=== PATIENT | female | born 1950 | race Caucasian/White ===

== ENCOUNTER 2018-04-09 16:17 | Emergency (ER) | payer MEDICARE ==
[~2018-04-09] VITALS: Ht 167.6 cm; Wt 106.1 kg
[2018-04-09 16:17] VITALS: BP_SYST 156
[2018-04-09 17:57] VITALS: BP_SYST 149
== END 2018-04-09 17:57 | disposition home or self-care (01) ==
LOC: SED 16:17
DX: S61.401A Unspecified open wound of right hand, initial encounter (principal); S00.83XA Contusion of other part of head, initial encounter; S91.201A Unspecified open wound of right great toe with damage to nail, initial encounter; I10 Essential (primary) hypertension; X58.XXXA Exposure to other specified factors, initial encounter; Y93.89 Activity, other specified; Y92.89 Other specified places as the place of occurrence of the external cause; Y99.8 Other external cause status
CPT/HCPCS: 73090; 99284

== ENCOUNTER 2021-04-26 23:28 | Emergency (ER) | payer MEDICARE ==
[~2021-04-26] VITALS: Ht 165.1 cm; Wt 77.1 kg
[2021-04-26 23:57] VITALS: BP_SYST 104
--- NOTE | 2021-04-27 00:10 | NUR ---
PT C/O DIARRHEA X2DAYS AMBULATORY TO [facility] STARTED RT FA 20G WITH .9NS 1000ML BOLUS
[2021-04-27] MEDS ORDERED: NACL 0.9% 1,000 ML IV ONE (00:45)
[2021-04-27 01:00] LABS: BASOPHILS % (AUTO) 0.4 % (0.0-2.0); EOSINOPHILS # (AUTO) 0.2 K/uL (0.0-0.4); EOSINOPHILS % (AUTO) 1.7 % (0.0-4.0); HEMATOCRIT 38.9 % (36-48); HEMOGLOBIN 12.8 g/dL (12.0-16.0); LYMPHOCYTES # (AUTO) 1.5 K/uL (1.0-5.5); LYMPHOCYTES % (AUTO) 13.5 % (20.5-51.5); MEAN CORPUSCULAR HEMOGLOBIN 31 pg (27-31); MEAN CORPUSCULAR HGB CONC 33 % (32-36); MEAN CORPUSCULAR VOLUME 93 fL (79.0-98.0); MONOCYTES # (AUTO) 0.8 K/uL (0.0-1.0); MONOCYTES % (AUTO) 7.2 % (1.7-9.3); NEUTROPHILS # (AUTO) 8.8 K/uL (1.8-7.7); NEUTROPHILS % (AUTO) 77.2 % (40.0-70.0); PLATELET COUNT (AUTO) 284 K/uL (130-430); RED BLOOD CELL COUNT(AUTO) 4.19 MIL/uL (4.2-6.2); RED CELL DISTRIBUTION WIDTH 13.3 % (9.0-15.0); WHITE BLOOD COUNT (AUTO) 11.3 K/uL (4.8-10.8)
[2021-04-27 01:10] LABS: ANION GAP 10 (5-15); CHLORIDE 107 mmol/L (98-107); CREATININE 1.26 mg/dL (0.55-1.30); GLUCOSE 97 mg/dL (70-99); POTASSIUM 3.6 mmol/L (3.5-5.1); SODIUM SERUM 139 mmol/L (136-145); UREA NITROGEN, BLOOD 27 mg/dL (8-21)
[2021-04-27] MEDS ORDERED: IBUPROFEN 600 MG TABLET PO ONE (01:15)
[2021-04-27] MEDS ORDERED: chlordiazePOXIDE HCL 25 MG CAPSULE PO ONE (01:15)
[2021-04-27 01:16] LABS: ALANINE AMINOTRANSFERASE 18 U/L (12-78); ALBUMIN 3.3 g/dL (3.4-4.8); ASPARTATE AMINOTRANSFERASE 18 U/L (10-37); TOTAL BILIRUBIN 0.2 mg/dL (0.0-1.0)
--- NOTE | 2021-04-27 01:48 | NUR ---
DR SEALS TO ESTHER PT AND REVIEW DISCHG CARE PT REFUSED RECTAL EXAM AND DR WHALEY STOOL SPECIMEN
[2021-04-27] MEDS ORDERED: ONDA-8 TL ×2 (01:55→09:55)
[2021-04-27] MEDS ORDERED: PEPTO PO ×2 (01:55→09:55)
--- NOTE | 2021-04-27 02:14 | NUR ---
PT IV DCD SITE WNL PT DISCHGED WITH AFTERCARE INSTRUCTIONS FAMILY TO DRIVE PT HOME STABLE
[2021-04-27 02:18] VITALS: BP_SYST 127
== END 2021-04-27 02:18 | disposition home or self-care (01) ==
LOC: SED 23:28
DX: R19.7 Diarrhea, unspecified (principal); E86.0 Dehydration; I10 Essential (primary) hypertension; Z79.899 Other long term (current) drug therapy
CPT/HCPCS: 36415; 72170; 80053; 85025; 96360; 99284; J7030